=== PATIENT | female | born 1970 | race American Indian/Alaskan Native ===

== ENCOUNTER 2017-03-19 17:22 | Emergency (ER) | payer OTHER ==
[2017-03-19] MEDS ORDERED: ZESTRIL PO ONE (19:48)
[2017-03-19] MEDS ORDERED: VALIUM PO ONE (19:48)
[2017-03-19] MEDS ORDERED: PERCOCET 5/325 PO ONE (19:48)
[2017-03-19] MEDS ORDERED: CATAPRES PO ONE (19:48)
--- NOTE | 2017-03-19 21:07 | XRay Report ---
FINAL REPORT EXAM: XR FOOT BILAT 3+V HISTORY: fall with pain and swelling TECHNIQUE: Right foot three views and left foot three views PRIORS: None. FINDINGS: No fracture or dislocation identified. Joint spaces are within normal limits. No radiopaque foreign body seen. No soft tissue abnormality identified. IMPRESSION: Negative bilateral foot series
--- NOTE | 2017-03-19 21:11 | XRay Report ---
FINAL REPORT EXAM: XR ANKLE BILAT 3+V HISTORY: fall with pain and swelling TECHNIQUE: Bilateral ankles. Three views right ankle and three views of the left ankle PRIORS: None. FINDINGS: No fracture is identified. No dislocation seen. Ankle mortise is intact no evidence of joint space widening. No erosive or degenerative changes are identified. No evidence of joint effusion. There is lateral soft tissue swelling of the right ankle IMPRESSION: Lateral soft tissue swelling of the right ankle No fractures identified on bilateral ankle series
--- NOTE | 2017-03-19 21:13 | XRay Report ---
FINAL REPORT EXAM: XR TIB/FIB BILAT 2V HISTORY: Fall with pain TECHNIQUE: Bilateral lower legs tibia-fibula two views right knee two views left PRIORS: None. FINDINGS: No fracture is identified. The joint spaces are within normal limits. No focal bony lesion identified. No radiopaque foreign body seen. IMPRESSION: Negative no acute abnormality.
--- NOTE | 2017-03-19 21:16 | XRay Report ---
FINAL REPORT EXAM: XR KNEE BILAT 3V HISTORY: fall with pain and LROM TECHNIQUE: Bilateral knees three views right and three views left PRIORS: None. FINDINGS: No fracture is identified. No dislocation seen. No evidence of joint effusion. Patella demonstrates normal positioning. No acute bony abnormality identified. IMPRESSION: Negative knee series
[2017-03-19 23:01] VITALS: BP 155/93
--- NOTE | 2017-03-19 23:26 | Emergency Department Report ---
Entered by TERRY SPRAGUE, acting as scribe for STEFAN GREEN PA. 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 Patient was brought by EMS and is not ambulatory. Patient rates pain 9/10 and describes pain as throbbing and achy. Patient reports headache, but denies LOC, head injury, fever, chills, chest pain, abd pain, nausea, or vomiting. Patient has not taken anything for elevated HTN and needs a refill on HTN medication. She takes lisinopril 20 mg and clonidine 0.2 mg daily. NKDA. 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 denies: snap/pop sensation, numbness, tingling, ambulatory Treatments Prior to Arrival: other (on) - Related Data Home Medications Medication Instructions Recorded Confirmed Last Taken cloNIDine [Catapres] 0.2 mg PO QHS 04/21/13 03/15/16 01/06/14 Previous Rx's Medication Instructions Recorded Last Taken Type Lisinopril [Zestril TAB] 20 mg PO QDAY #30 04/21/13 01/06/14 Rx amLODIPine [Norvasc] 5 mg PO DAILY #30 tab 01/07/14 Unknown Rx Cyclobenzaprine [Flexeril] 10 mg PO TID PRN #15 tablet 03/19/17 Unknown Rx Ibuprofen [Motrin] 600 mg PO Q8H PRN #15 tablet 03/19/17 Unknown Rx Lisinopril [Zestril TAB] 20 mg PO QDAY #30 tablet 03/19/17 Unknown Rx cloNIDine [Catapres] 0.2 mg PO QHS #30 tablet 03/19/17 Unknown Rx Allergies Allergy/AdvReac Type Severity Reaction Status Date / Time No Known Allergies Allergy Verified 01/07/14 00:50 ED Review of Systems Comment: All other systems reviewed and negative Constitutional: denies: chills, fever, weakness ENT: denies: congestion Respiratory: denies: cough, orthopnea, shortness of breath, SOB with exertion, SOB at rest, stridor, wheezing Cardiovascular: denies: chest pain, palpitations, edema, syncope Gastrointestinal: denies: abdominal pain, nausea, diarrhea Musculoskeletal: joint swelling, arthralgia. denies: back pain, myalgia Skin: denies: rash, lesions Neurological: headache. denies: weakness, numbness, paresthesias, confusion, abnormal gait, vertigo ED Past Medical Hx - Past Medical History Previous Medical History?: Yes Hx Hypertension: Yes Additional medical history: nose bleeds - Surgical History Past Surgical History?: No - Family History Family history: hypertension - Social History Smoking Status: Never Smoker Substance Use Type: None - Medications Home Medications: Home Medications Medication Instructions Recorded Confirmed Last Taken Type Lisinopril [Zestril TAB] 20 mg PO QDAY #30 04/21/13 03/15/16 01/06/14 Rx cloNIDine [Catapres] 0.2 mg PO QHS 04/21/13 03/15/16 01/06/14 History amLODIPine [Norvasc] 5 mg PO DAILY #30 tab 01/07/14 03/15/16 Unknown Rx Cyclobenzaprine [Flexeril] 10 mg PO TID PRN #15 tablet 03/19/17 Unknown Rx Ibuprofen [Motrin] 600 mg PO Q8H PRN #15 tablet 03/19/17 Unknown Rx Lisinopril [Zestril TAB] 20 mg PO QDAY #30 tablet 03/19/17 Unknown Rx cloNIDine [Catapres] 0.2 mg PO QHS #30 tablet 03/19/17 Unknown Rx ED Physical Exam - General Limitations: No Limitations General appearance: alert, in no apparent distress - Head Head exam: Present: atraumatic, normocephalic, normal inspection - Expanded Head Exam Expanded Head exam: Absent: laceration, abrasion, contusion, hematoma, racoon eyes, graff's sign, general tenderness, tenderness of temporal artery, CSF rhinorrhea , CSF otorrhea - Eye Eye exam: Present: normal appearance, PERRL, EOMI. Absent: nystagmus, periorbital swelling, periorbital tenderness Pupils: Present: normal accommodation - ENT ENT exam: Present: normal exam, normal orophraynx, mucous membranes moist - Neck Neck exam: Present: normal inspection, full ROM. Absent: tenderness, meningismus, lymphadenopathy - Expanded Neck Exam Expanded Neck exam: Absent: tenderness, midline deformity, anterior neck swelling, tracheal deviation - Respiratory Respiratory exam: Present: normal lung sounds bilaterally. Absent: respiratory distress, wheezes, rales, rhonchi, stridor, chest wall tenderness, accessory muscle use, decreased breath sounds - Cardiovascular Cardiovascular Exam: Present: regular rate, normal rhythm, normal heart sounds. Absent: systolic murmur, diastolic murmur - GI/Abdominal GI/Abdominal exam: Present: soft, normal bowel sounds. Absent: distended, tenderness, guarding, rebound, rigid, diminished bowel sounds - Extremities Exam Extremities exam: Present: full ROM (with pain), tenderness, normal capillary refill, joint swelling. Absent: pedal edema, calf tenderness - Expanded Upper Extremity Exam Left General: Absent: abrasion, nail injury (#), foreign body, amputation, avulsion Shoulder Exam: Present: normal inspection, full ROM. Absent: tenderness, swelling, laceration, deformity, dislocation, erythema, tenderness over AC joint Upper Arm exam: Present: normal inspection, full ROM, other. Absent: abrasion, laceration, ecchymosis, deformity, crepidus, dislocation, erythema Elbow exam: Present: normal inspection, full ROM. Absent: tenderness, swelling , abrasion, laceration, ecchymosis, deformity, crepidus, dislocation, erythema, effusion, pain w/ pronation/supination, tenderness over radial head Forearm Wrist exam: Present: normal inspection, full ROM. Absent: tenderness, swelling, abrasion, laceration, ecchymosis, deformity, crepidus, dislocation, erythema, tenderness over anatomical snuff box, pain with axial thumb loading Hand Wrist exam: Present: normal inspection, full ROM. Absent: tenderness, swelling, abrasion, laceration, ecchymosis, deformity, crepidus, dislocation, erythema, amputation, nail avulsion, subungual hematoma Neuro motor exam: Present: wrist extension intact, thumb opposition intact, thumb IP flexion intact, thumb adduction intact, fingers 2-5 abduction intact Neurosensory exam: Present: 2-point discrimination, radial nerve intact, ulnar nerve intact, median nerve intact Vascular: Present: normal capillary refill, radial pulse, brachial pulse. Absent: vascular compromise, Pallo, pulse deficit radial art, pulse deficit ulnar art, pulse deficit brachial art Right General: Present: normal inspection. Absent: laceration, abrasion, nail injury (#), foreign body, amputation, avulsion Shoulder Exam: Present: normal inspection, full ROM (with pain). Absent: tenderness, swelling, abrasion, laceration, ecchymosis, deformity, crepidus, dislocation, erythema, tenderness over AC joint Elbow exam: Present: normal inspection, full ROM. Absent: tenderness, swelling , abrasion, laceration, ecchymosis, deformity, crepidus, dislocation, erythema, effusion, pain w/ pronation/supination, tenderness over radial head Forearm Wrist exam: Present: normal inspection, full ROM. Absent: tenderness, swelling, abrasion, laceration, ecchymosis, deformity, crepidus, dislocation, erythema, tenderness over anatomical snuff box, pain with axial thumb loading Hand Wrist exam: Present: normal inspection, full ROM. Absent: tenderness, swelling, abrasion, laceration, ecchymosis, deformity, crepidus, dislocation, amputation, nail avulsion, subungual hematoma Neuro motor exam: Present: wrist extension intact, thumb opposition intact, thumb IP flexion intact, thumb adduction intact, fingers 2-5 abduction intact Neurosensory exam: Present: 2-point discrimination, radial nerve intact, ulnar nerve intact, median nerve intact Vascular: Present: normal capillary refill, radial pulse, brachial pulse, ulnar pulse. Absent: vascular compromise, Pallo, pulse deficit radial art, pulse deficit ulnar art, pulse deficit brachial art - Expanded Lower Extremity Exam Right Hip exam: Present: normal inspection, full ROM, pelvic stability. Absent: tenderness, swelling, abrasion, laceration, ecchymosis, deformity, crepidus, dislocation, erythema, external rotation, internal rotation, shortening Upper Leg exam: Present: normal inspection, full ROM, tenderness. Absent: swelling, abrasion, laceration, ecchymosis, deformity, crepidus, dislocation, erythema Knee exam: Present: normal inspection, full ROM (with pain), tenderness (TTP to right knee all the way down to foot ), full knee extension. Absent: swelling, abrasion, laceration, ecchymosis, deformity, crepidus, dislocation, erythema, effusion, pain w/ pronation/supination, posterior draw sign, pain/laxity with valgus, pain/laxity with varus Lower Leg exam: Present: normal inspection, full ROM, tenderness. Absent: swelling, abrasion, laceration, ecchymosis, deformity, crepidus, dislocation, erythema, palpable cord, Jose Martin's sign Ankle exam: Present: swelling (Edema present in right ankle). Absent: full ROM (limited ROM) Foot/Toe exam: Present: tenderness, swelling. Absent: full ROM, abrasion, laceration, ecchymosis, deformity, crepidus, dislocation, erythema, amputation, puncture wound, foreign body, calcaneal tenderness, tenderness at base of 5th metatarsal, nail avulsion, subungual hematoma Neuro vascular tendon exam: Present: no vascular compromise (2+ pulses). Absent : pulse deficit, abnormal cap refill, motor deficit, sensory deficit, tendon deficit, extremity cold to touch, pallor, abnormal 2-point discrimination, decreased fine/light touch, foot drop, peroneal nerve deficit, significant pain with passive ROM of distal joint Gait: Positive: unable to bear weight Left Hip exam: Present: normal inspection, full ROM, pelvic stability. Absent: tenderness, swelling, abrasion, laceration, ecchymosis, deformity, crepidus, dislocation, erythema, external rotation, internal rotation, shortening Upper Leg exam: Present: normal inspection, full ROM. Absent: tenderness, swelling, abrasion, laceration, ecchymosis, deformity, crepidus, dislocation, erythema Knee exam: Present: normal inspection, full ROM (with pain), tenderness, full knee extension. Absent: swelling, abrasion, laceration, ecchymosis, deformity, crepidus, dislocation, erythema, effusion, pain w/ pronation/supination, posterior draw sign, pain/laxity with valgus, pain/laxity with varus Lower Leg exam: Present: normal inspection, full ROM, tenderness. Absent: swelling, abrasion, laceration, ecchymosis, deformity, crepidus, dislocation, erythema, palpable cord, Jose Martin's sign Ankle exam: Present: full ROM (with pain), tenderness, swelling. Absent: normal inspection, abrasion, laceration, ecchymosis, deformity, crepidus, dislocation, erythema, anterior draw sign Foot/Toe exam: Present: full ROM, tenderness, swelling. Absent: normal inspection, abrasion, laceration, ecchymosis, deformity, crepidus, dislocation, erythema, amputation, puncture wound, foreign body, calcaneal tenderness, tenderness at base of 5th metatarsal, nail avulsion, subungual hematoma Neuro vascular tendon exam: Present: no vascular compromise (2+). Absent: pulse deficit, abnormal cap refill, motor deficit, sensory deficit, tendon deficit, extremity cold to touch, pallor, abnormal 2-point discrimination, decreased fine/light touch, foot drop, peroneal nerve deficit, significant pain with passive ROM of distal joint Gait: Positive: unable to bear weight - Back Exam Back exam: Present: normal inspection, full ROM. Absent: tenderness, CVA tenderness (L), muscle spasm, paraspinal tenderness, vertebral tenderness, rash noted - Neurological Exam Neurological exam: Present: alert, oriented X3, abnormal gait (an abnormal gait due to pain and swelling to both ankle and feet and pain to both knees), motor sensory deficit (patient with decreased motor activity to lower extremity at both knees, and lower extremities.), reflexes normal - Psychiatric Psychiatric exam: Present: normal affect, normal mood. Absent: depressed - Skin Skin exam: Present: warm, dry, intact, normal color. Absent: rash ED Course Vital Signs 03/19/17 17:30 Temperature 98.3 F Pulse Rate 86 Respiratory 16 Rate Blood Pressure 212/104 O2 Sat by Pulse 98 Oximetry Vital Signs 03/19/17 03/19/17 17:30 23:00 Temperature 98.3 F Pulse Rate 86 68 Respiratory 16 18 Rate Blood Pressure 212/104 Blood Pressure 155/93 [Left] O2 Sat by Pulse 98 98 Oximetry - Reevaluation(s) Reevaluation #1: 03/19/17 23:10 Patient given Valium 10 mg by mouth, Percocet 5/325 2 tablets by mouth which relieved her pain. She also received clonidine 0.2 mg and lisinopril 20 mg by mouth for elevated blood pressure. These are her usual blood pressure and blood pressure is down. Patient no longer has a headache and said her pain is better. She still not able to weight-bear without pain. Patient with soft tissue swelling to right ankle and splint placed. Crutches training. - Orthopedic Splinting/Casting Injury #1 Side: right Lower Extremity Injury Location: ankle Lower Extremity Immobilizer: stirrup splint Other Orthopedic Equipment: crutches ED Lower Extremity MDM - Radiology Data Radiology results: report reviewed History of bilateral knees, tib-fib and feet reveal no fracture or dislocation and no abnormal findings. Of both ankles reveal no fracture or dislocation of ankles but patient had lateral soft tissue swelling of the right ankle. - Medical Decision Making E course: She had presented emergency room via EMS after falling at the [employer]. She says she tripped over a box and she complained of inability to walk due to pain in her lower extremities at both her knees, legs, ankles and feet. X-ray report reveals no acute fractures or dislocation to knees, ankles, legs and feet but soft tissue swelling laterally to right ankle. She can was placed in right ankle stirrup and given crutches. She demonstrated use without any difficulties. Should understand that she needs to follow up with orthopedic doctor in 1-2 days for follow-up visit. [place] reports and results with her. And also here presenting with elevated blood pressure and she has a history of 5 blood pressure but she said she does not have any blood pressure medication. She says she takes lisinopril and clonidine which was verified. Was given lisinopril 20 mg by mouth and clonidine 0.2 mg by mouth which brought her pressure down. He is also given Percocet 5/325 2 tablets emergency room along with Valium 10 mg by mouth for arthralgia and she voiced relief of her pain. Patient voiced understanding of discharge instruction and treatment plan and to follow-up with her primary care physician along with orthopedic doctor as discussed. I discussed with her if she does not have a primary care physician she will need to follow up at [facility] to manage her chronic hypertension. Patient is able to stand and ambulate but she still remains a pain to her lower extremity with ambulation. Diagnostic/labs: X-ray report of bilateral knees negative for fracture dislocation or effusion. X-ray of bilateral tib-fib negative for fracture or dislocation, x-ray of bilateral foot reveals no fracture or dislocation and x- ray of bilat right ankle but soft tissue swelling right lateral ankle Assessment/plan 1. Arthralgia multiple sites bilaterally 2. Elevated blood pressure with diagnosis of hypertension-ran out of her medication 3. The dental fall from ground level 4. Right ankle sprain 5. Musculoskeletal pain Patient given prescription for Flexeril and Motrin and to follow-up with orthopedic doctor and if she does not have a primary care physician to follow up at [facility] in 2-3 days for management of chronic hypertension. She was given refill on clonidine 0.2 mg daily at bedtime and lisinopril 20 mg daily. ED Disposition Clinical Impression: Arthralgia of multiple sites, bilateral, Musculoskeletal pain, Elevated blood pressure reading in office with diagnosis of hypertension Accidental fall Qualifiers: Encounter type: initial encounter Qualified Code(s): W19.XXXA - Unspecified fall, initial encounter Right ankle sprain Qualifiers: Encounter type: initial encounter Involved ligament of ankle: other ligament Qualified Code(s): S93.491A - Sprain of other ligament of right ankle, initial encounter Disposition: TO HOME OR SELFCARE Is pt being admited?: No Does the pt Need Aspirin: No Condition: Stable Instructions: Hypertension (ED), Musculoskeletal Pain (ED), Arthralgia (ED), Knee Pain (ED), Knee Exercises (GEN), Ankle Stirrup Splint (ED), Ankle Sprain ( ED) Additional Instructions: follow up with [facility] for management of elevated blood pressure and chronic hypertension Take medication as prescribed Keep a log a few blood pressure and take to primary care visit with you Follow-up with orthopedic doctor as instructed Do not drive or operate heavy machinery while taking Flexeril as this medication causes drowsiness Prescriptions: cloNIDine [Catapres] 0.2 mg PO QHS #30 tablet Cyclobenzaprine [Flexeril] 10 mg PO TID PRN #15 tablet PRN Reason: Muscle Spasm Ibuprofen [Motrin] 600 mg PO Q8H PRN #15 tablet PRN Reason: Pain Lisinopril [Zestril TAB] 20 mg PO QDAY #30 tablet Referrals: PRIMARY CAREMD [Primary Care Provider] - 2-3 Days BECKIE LONGO MD [Staff Physician] - 2-3 Days [facility] [Outside] - 2-3 Days Forms: Work/School Release Form(ED) This documentation as recorded by the DARCIE mckeon PEARL,accurately reflects the service I personally performed and the decisions made by ,STEFAN GREEN PA.
== END 2017-03-19 23:54 | disposition home or self-care (01) ==
LOC: ED 17:22
DX: S93.491A Sprain of other ligament of right ankle, initial encounter (principal); M25.561 Pain in right knee; M25.562 Pain in left knee; I10 Essential (primary) hypertension; W01.0XXA Fall on same level from slipping, tripping and stumbling without subsequent striking against object, initial encounter; Y93.89 Activity, other specified; Y92.89 Other specified places as the place of occurrence of the external cause; Y99.8 Other external cause status

== ENCOUNTER 2019-02-15 02:53 | Emergency (ER) | payer SELFPAY ==
[2019-02-15 03:26] LABS: Basophils # (Auto) 0.1 K/mm3 (0.0-0.1); Basophils % (Auto) 1.2 % (0.0-1.8); Eosinophils # (Auto) 0.3 K/mm3 (0.0-0.4); Eosinophils % (Auto) 3.7 % (0.0-4.3); Hemoglobin 12.6 gm/dl (10.1-14.3); Lymphocytes # (Auto) 2.3 K/mm3 (1.2-5.4); Lymphocytes % (Auto) 32.7 % (13.4-35.0); Mean Corpuscular HGB Conc 34 % (30-34); Mean Corpuscular Volume 91 fl (79-97); Monocytes # (Auto) 0.9 K/mm3 (0.0-0.8); Monocytes % (Auto) 13.2 % (0.0-7.3); Platelet Count 225 K/mm3 (140-440); Red Blood Count 4.08 M/mm3 (3.65-5.03); Red Cell Distribution Width 12.9 % (13.2-15.2)
[2019-02-15] MEDS ORDERED: ZESTRIL PO ONE (03:42)
[2019-02-15] MEDS ORDERED: ZIAC 10-6.25 PO ONE (03:42)
[2019-02-15 03:43] LABS: HCG Qualitative,Urine Negative (Negative)
[2019-02-15 03:46] LABS: Alanine Aminotransferase 15 units/L (7-56); Albumin 4.4 g/dL (3.9-5); BUN/Creatinine Ratio 13; Blood Urea Nitrogen 13 mg/dL (7-17); Calcium 9.3 mg/dL (8.4-10.2); Hemolysis Index 6
--- NOTE | 2019-02-15 03:50 | Emergency Department Report ---
ED General Adult HPI - General Chief complaint: Nosebleed Stated complaint: NOSE BLEED BLOOD PRESSURE MEDS Time Seen by Provider: 02/15/19 03:49 Source: patient, RN notes reviewed, old records reviewed Mode of arrival: Ambulatory Limitations: No Limitations - History of Present Illness Initial comments: This is a pleasant 48-year-old female. I have evaluated this patient in the past. She does not think she is . She presents to the ER with 2 complaints. Her first complaint is bilateral nasal bleeding. It is now resolved. It decreased on its own Patient also complains of pain was minimal lower extremity swelling. She also complains of hypertension and states that she ran out of her blood pressure medications. She has no other injuries. She has no other complaints. She denies nasal trauma, cocaine, picking her nose, chest pain, abdominal pain, new, different shortness of breath. She makes no complaints or mention of DVT or pulmonary embolism risk factors. -: Sudden Location: face, left, right, lower extremity Radiation: non-radiation Consistency: now resolved Improves with: other Worsens with: other - Related Data Home Medications Medication Instructions Recorded Confirmed Last Taken cloNIDine [Catapres] 0.2 mg PO QHS 04/21/13 03/15/16 01/06/14 Previous Rx's Medication Instructions Recorded Last Taken Type amLODIPine [Norvasc] 5 mg PO DAILY #30 tab 01/07/14 Unknown Rx Cyclobenzaprine [Flexeril] 10 mg PO TID PRN #15 tablet 03/19/17 Unknown Rx Ibuprofen [Motrin] 600 mg PO Q8H PRN #15 tablet 03/19/17 Unknown Rx Lisinopril [Zestril TAB] 20 mg PO QDAY #30 tablet 03/19/17 Unknown Rx cloNIDine [Catapres] 0.2 mg PO QHS #30 tablet 03/19/17 Unknown Rx Bisoprolol/Hctz [Ziac 10-6.25] 1 each PO DAILY #30 tab 02/15/19 Unknown Rx Lisinopril [Zestril TAB] 20 mg PO QDAY #30 tablet 02/15/19 Unknown Rx Allergies Allergy/AdvReac Type Severity Reaction Status Date / Time No Known Allergies Allergy Verified 01/07/14 00:50 ED Review of Systems ROS: Stated complaint: NOSE BLEED BLOOD PRESSURE MEDS Other details as noted in HPI Constitutional: denies: fever Eyes: denies: eye discharge ENT: epistaxis. denies: congestion Respiratory: denies: cough Cardiovascular: edema. denies: chest pain Gastrointestinal: denies: abdominal pain, nausea, vomiting Genitourinary: denies: dysuria Musculoskeletal: denies: myalgia Neurological: denies: as per HPI Psychiatric: anxiety Hematological/Lymphatic: denies: easy bleeding ED Past Medical Hx - Past Medical History Previous Medical History?: Yes Hx Hypertension: Yes Additional medical history: nose bleeds - Surgical History Past Surgical History?: No - Social History Smoking Status: Never Smoker Substance Use Type: None - Medications Home Medications: Home Medications Medication Instructions Recorded Confirmed Last Taken Type cloNIDine [Catapres] 0.2 mg PO QHS 04/21/13 03/15/16 01/06/14 History amLODIPine [Norvasc] 5 mg PO DAILY #30 tab 01/07/14 03/15/16 Unknown Rx Cyclobenzaprine [Flexeril] 10 mg PO TID PRN #15 tablet 03/19/17 Unknown Rx Ibuprofen [Motrin] 600 mg PO Q8H PRN #15 tablet 03/19/17 Unknown Rx Lisinopril [Zestril TAB] 20 mg PO QDAY #30 tablet 03/19/17 Unknown Rx cloNIDine [Catapres] 0.2 mg PO QHS #30 tablet 03/19/17 Unknown Rx Bisoprolol/Hctz [Ziac 10-6.25] 1 each PO DAILY #30 tab 02/15/19 Unknown Rx Lisinopril [Zestril TAB] 20 mg PO QDAY #30 tablet 02/15/19 Unknown Rx ED Physical Exam - General Limitations: No Limitations General appearance: alert, in no apparent distress - Head Head exam: Present: atraumatic, normocephalic - Eye Eye exam: Present: normal appearance, EOMI. Absent: nystagmus - ENT ENT exam: Present: normal exam, normal orophraynx, mucous membranes moist, normal external ear exam, other (no active bleeding noted in the nostrils. Dried blood is noted.) - Neck Neck exam: Present: normal inspection, full ROM. Absent: tenderness, meningismus - Respiratory Respiratory exam: Present: normal lung sounds bilaterally. Absent: respiratory distress - Cardiovascular Cardiovascular Exam: Present: normal rhythm, tachycardia, normal heart sounds. Absent: systolic murmur, diastolic murmur, rubs, gallop - GI/Abdominal GI/Abdominal exam: Present: soft. Absent: distended, tenderness, guarding, rebound, rigid, pulsatile mass - Extremities Exam Extremities exam: Present: normal inspection, full ROM, pedal edema (1+ edema noted on the feet. There is no palpable cord. There is a negative Homans sign.), other (2+ pulses noted in the bilateral upper, lower extremities. Compartments soft. No long bony tenderness. The pelvis is stable.). Absent: calf tenderness - Back Exam Back exam: Present: normal inspection, full ROM. Absent: tenderness, CVA tenderness (R), CVA tenderness (L), paraspinal tenderness, vertebral tenderness - Neurological Exam Neurological exam: Present: alert, oriented X3, normal gait, other (Extraocular movements intact. Tongue midline. No facial droop. Facial sensation intact to light touch in the V1, V2, V3 distribution bilaterally. 5 and 5 strength in 4 extremities.. Sensation is intact to light touch in 4 extremities.). Absent: motor sensory deficit - Psychiatric Psychiatric exam: Present: anxious - Skin Skin exam: Present: warm, dry, intact, normal color. Absent: rash ED Course Vital Signs 02/15/19 02/15/19 02/15/19 02:55 03:20 03:45 Temperature 98.3 F Pulse Rate 112 H 101 H 100 H Respiratory 18 18 16 Rate Blood Pressure 270/140 Blood Pressure 252/126 264/151 [Right] O2 Sat by Pulse 98 98 97 Oximetry 02/15/19 02/15/19 02/15/19 04:05 04:27 04:41 Temperature Pulse Rate 88 82 85 Respiratory 15 16 16 Rate Blood Pressure Blood Pressure 222/112 222/111 214/117 [Right] O2 Sat by Pulse 97 98 Oximetry 02/15/19 05:18 Temperature Pulse Rate 76 Respiratory 15 Rate Blood Pressure Blood Pressure 195/103 [Right] O2 Sat by Pulse 97 Oximetry ED Medical Decision Making - Lab Data Result diagrams: 02/15/19 03:16 02/15/19 03:16 Vital Signs 02/15/19 02/15/19 02/15/19 02:55 03:20 03:45 Temperature 98.3 F Pulse Rate 112 H 101 H 100 H Respiratory 18 18 16 Rate Blood Pressure 270/140 Blood Pressure 252/126 264/151 [Right] O2 Sat by Pulse 98 98 97 Oximetry 02/15/19 02/15/19 02/15/19 04:05 04:27 04:41 Temperature Pulse Rate 88 82 85 Respiratory 15 16 16 Rate Blood Pressure Blood Pressure 222/112 222/111 214/117 [Right] O2 Sat by Pulse 97 98 Oximetry Lab Results 02/15/19 02/15/19 02/15/19 Range/Units 03:16 03:16 Unknown WBC 7.2 (4.5-11.0) K/mm3 RBC 4.08 (3.65-5.03) M/mm3 Hgb 12.6 (10.1-14.3) gm/dl Hct 37.0 (30.3-42.9) % MCV 91 (79-97) fl MCH 31 (28-32) pg MCHC 34 (30-34) % RDW 12.9 L (13.2-15.2) % Plt Count 225 (140-440) K/mm3 Lymph % (Auto) 32.7 (13.4-35.0) % [place] % (Auto) 13.2 H (0.0-7.3) % Eos % (Auto) 3.7 (0.0-4.3) % Baso % (Auto) 1.2 (0.0-1.8) % Lymph # 2.3 (1.2-5.4) K/mm3 [place] # 0.9 H (0.0-0.8) K/mm3 Eos # 0.3 (0.0-0.4) K/mm3 Baso # 0.1 (0.0-0.1) K/mm3 Seg Neutrophils % 49.2 (40.0-70.0) % Seg Neutrophils # 3.5 (1.8-7.7) K/mm3 Sodium 140 (137-145) mmol/L Potassium 3.7 (3.6-5.0) mmol/L Chloride 100.4 (98-107) mmol/L Carbon Dioxide 28 (22-30) mmol/L Anion Gap 15 mmol/L BUN 13 (7-17) mg/dL Creatinine 1.0 (0.7-1.2) mg/dL Estimated GFR > 60 ml/min BUN/Creatinine Ratio 13 % Glucose 102 H (65-100) mg/dL Calcium 9.3 (8.4-10.2) mg/dL Total Bilirubin 0.40 (0.1-1.2) mg/dL AST 23 (5-40) units/L ALT 15 (7-56) units/L Alkaline Phosphatase 66 (35-129) units/L Total Protein 8.6 H (6.3-8.2) g/dL Albumin 4.4 (3.9-5) g/dL Albumin/Globulin Ratio 1.0 % Urine HCG, Qual Negative (Negative) Vital Signs 02/15/19 02/15/19 02/15/19 02:55 03:20 03:45 Temperature 98.3 F Pulse Rate 112 H 101 H 100 H Respiratory 18 18 16 Rate Blood Pressure 270/140 Blood Pressure 252/126 264/151 [Right] O2 Sat by Pulse 98 98 97 Oximetry 02/15/19 02/15/19 02/15/19 04:05 04:27 04:41 Temperature Pulse Rate 88 82 85 Respiratory 15 16 16 Rate Blood Pressure Blood Pressure 222/112 222/111 214/117 [Right] O2 Sat by Pulse 97 98 Oximetry 02/15/19 05:18 Temperature Pulse Rate 76 Respiratory 15 Rate Blood Pressure Blood Pressure 195/103 [Right] O2 Sat by Pulse 97 Oximetry - Medical Decision Making Differential diagnosis, including but not limited to: Hypertension, anxiety, me dication refill, nasal bleeding Dependent edema Assessment and plan: 48-year-old female with complaint of recurrent nasal bleeding. It is now resolved. Has chronic hypertension. Retention improved with continuation of her outpatient medications. Does not require emergent D escalation of chronic hypertension. Please reference the [employer] clinical policy on chronic hypertension which is not acutely decompensated. Patient given a tongue blade external device to apply to the external nostrils if bleeding reoccurs. Her medications are refilled. Has minimal lower extremity edema, without evidence of DVT, or overt CHF. She does not appear to have an emergent medical condition at this time, and she may be discharged. Critical care attestation.: If time is entered above; I have spent that time in minutes in the direct care of this critically ill patient, excluding procedure time. ED Disposition Clinical Impression: Hypertension, Nasal bleeding, Medication refill Disposition: - TO HOME OR SELFCARE Is pt being admited?: No Does the pt Need Aspirin: No Condition: Stable Instructions: Epistaxis (ED) Additional Instructions: Take the blood pressure medications as directed. Purchase Flonase [id number]. If patient starts to have bleeding again, she should apply one to 2 sprays of Flonase per nostril, and apply gentle direct pressure with her fingertips and the tongue depressor device as directed. If these do not stop nasal bleeding, the patient should return to the ER right away. The patient should follow-up with her primary care doctor for her hypertension within 4-6 weeks. Long-term complications of hypertension and elevated blood pressure includes stroke, heart attack, disability, paralysis, loss of quality of life. Return to the emergency room right away with new, worsening or different symptoms, or symptoms not present on the initial emergency room evaluation. Prescriptions: Lisinopril [Zestril TAB] 20 mg PO QDAY #30 tablet Bisoprolol/Hctz [Ziac 10-6.25] 1 each PO DAILY #30 tab Referrals: HAYDEN CLARKE MD [Primary Care Provider] - as needed
[2019-02-15 05:19] VITALS: BP 195/103
== END 2019-02-15 05:30 | disposition home or self-care (01) ==
LOC: ED 02:53
DX: I10 Essential (primary) hypertension (principal); R04.0 Epistaxis; Z76.0 Encounter for issue of repeat prescription; Z79.899 Other long term (current) drug therapy
CPT/HCPCS: 36415; 80053; 81025; 85025

== ENCOUNTER 2019-05-16 02:47 | Emergency (ER) | payer SELFPAY ==
[2019-05-16 02:56] VITALS: BP 241/110
--- NOTE | 2019-05-16 03:26 | XRay Report ---
Right hand 4 views INDICATION: Right hand pain following injury. Impression: No acute fracture or subluxation identified. Signer Name: Yehuda Rhodes MD Signed: 05/16/2019 3:22 AM Workstation Name: [id number]
[2019-05-16] MEDS ORDERED: DELTASONE PO ONE (03:32)
[2019-05-16] MEDS ORDERED: IBUPROFEN PO ONE (03:32)
[2019-05-16] MEDS ORDERED: TYLENOL #3 PO ONE (03:32)
--- NOTE | 2019-05-16 03:33 | Emergency Department Report ---
ED Upper Extremity Inj HPI - General Chief Complaint: Extremity Injury, Upper Stated Complaint: RIGHT HAND SWOLLEN Time Seen by Provider: 05/16/19 03:27 Source: patient Mode of arrival: Ambulatory Limitations: No Limitations - History of Present Illness Initial Comments: pt is a 48 y/o aaf who presents for right hand pain swelling aching x 2 days, pt denies fall, injury ,or trauma. " I did not hit it or fall" pain is described as 5/10 aching with joint pain , rom restricted by pain There is no numbness , no tingling, no paralysis , pt denies Sat night palsy episode. There is mild swelling , no deformity , no abrasion, laceration or bleeding. Complaint: Injury to:: right, hand Onset/Timin -: days(s) Other Extremity Injury: Hand: Right Other Injuries: none Handedness: right Place: work Severity scale (0 -10): 5 Improves With: rest Worsens With: movement of extremity Context: other (unkown ) Associated Symptoms: denies other symptoms Treatments Prior to Arrival: cold therapy - Related Data Home Medications Medication Instructions Recorded Confirmed Last Taken cloNIDine [Catapres] 0.2 mg PO QHS 04/21/13 03/15/16 01/06/14 Previous Rx's Medication Instructions Recorded Last Taken Type amLODIPine 5 mg PO DAILY #30 tab 01/07/14 Unknown Rx Cyclobenzaprine [Flexeril] 10 mg PO TID PRN #15 tablet 03/19/17 Unknown Rx Ibuprofen [Motrin] 600 mg PO Q8H PRN #15 tablet 03/19/17 Unknown Rx Lisinopril [Zestril TAB] 20 mg PO QDAY #30 tablet 03/19/17 Unknown Rx cloNIDine [Catapres] 0.2 mg PO QHS #30 tablet 03/19/17 Unknown Rx Bisoprolol/Hctz [Ziac 10-6.25] 1 each PO DAILY #30 tab 02/15/19 Unknown Rx Lisinopril [Zestril TAB] 20 mg PO QDAY #30 tablet 02/15/19 Unknown Rx Ibuprofen [Motrin 800 MG tab] 800 mg PO Q8HR PRN #30 tablet 05/16/19 Unknown Rx predniSONE [Deltasone] 40 mg PO QDAY 5 Days #10 tab 05/16/19 Unknown Rx Allergies Allergy/AdvReac Type Severity Reaction Status Date / Time No Known Allergies Allergy Verified 01/07/14 00:50 ED Review of Systems ROS: Stated complaint: RIGHT HAND SWOLLEN Other details as noted in HPI Constitutional: denies: chills, fever Eyes: denies: eye pain, eye discharge, vision change ENT: denies: ear pain, throat pain Respiratory: denies: cough, shortness of breath, wheezing Cardiovascular: denies: chest pain, palpitations Endocrine: no symptoms reported Gastrointestinal: denies: abdominal pain, nausea, diarrhea Genitourinary: denies: urgency, dysuria, discharge Musculoskeletal: joint swelling, arthralgia, myalgia. denies: back pain Skin: change in hair/nails. denies: lesions Neurological: denies: headache, weakness, numbness, paresthesias, confusion, vertigo Psychiatric: denies: anxiety, depression Hematological/Lymphatic: denies: easy bleeding, easy bruising ED Past Medical Hx - Past Medical History Previous Medical History?: Yes Hx Hypertension: Yes Additional medical history: nose bleeds - Social History Smoking Status: Never Smoker Substance Use Type: None - Medications Home Medications: Home Medications Medication Instructions Recorded Confirmed Last Taken Type cloNIDine [Catapres] 0.2 mg PO QHS 04/21/13 03/15/16 01/06/14 History amLODIPine 5 mg PO DAILY #30 tab 01/07/14 03/15/16 Unknown Rx Cyclobenzaprine [Flexeril] 10 mg PO TID PRN #15 tablet 03/19/17 Unknown Rx Ibuprofen [Motrin] 600 mg PO Q8H PRN #15 tablet 03/19/17 Unknown Rx Lisinopril [Zestril TAB] 20 mg PO QDAY #30 tablet 03/19/17 Unknown Rx cloNIDine [Catapres] 0.2 mg PO QHS #30 tablet 03/19/17 Unknown Rx Bisoprolol/Hctz [Ziac 10-6.25] 1 each PO DAILY #30 tab 02/15/19 Unknown Rx Lisinopril [Zestril TAB] 20 mg PO QDAY #30 tablet 02/15/19 Unknown Rx Ibuprofen [Motrin 800 MG tab] 800 mg PO Q8HR PRN #30 tablet 05/16/19 Unknown Rx predniSONE [Deltasone] 40 mg PO QDAY 5 Days #10 tab 05/16/19 Unknown Rx ED Physical Exam - General Limitations: No Limitations General appearance: alert, in no apparent distress - Head Head exam: Present: atraumatic, normocephalic - Eye Eye exam: Present: normal appearance, PERRL, EOMI Pupils: Present: normal accommodation - ENT ENT exam: Present: mucous membranes moist, normal external ear exam - Neck Neck exam: Present: normal inspection, tenderness, full ROM, lymphadenopathy. Absent: meningismus - Respiratory Respiratory exam: Present: normal lung sounds bilaterally. Absent: respiratory distress, wheezes, stridor - Cardiovascular Cardiovascular Exam: Present: regular rate, normal rhythm, normal heart sounds. Absent: systolic murmur, diastolic murmur, rubs, gallop - GI/Abdominal GI/Abdominal exam: Present: soft, normal bowel sounds. Absent: distended, tenderness - Rectal Rectal exam: Present: deferred, normal inspection - Extremities Exam Extremities exam: Present: full ROM, tenderness (call him over heare ), normal capillary refill. Absent: joint swelling, calf tenderness - Back Exam Back exam: Present: normal inspection, full ROM, paraspinal tenderness. Absent: CVA tenderness (R), CVA tenderness (L), muscle spasm - Neurological Exam Neurological exam: Present: alert, oriented X3, CN II-XII intact, normal gait, reflexes normal. Absent: motor sensory deficit - Expanded Neurological Exam Expanded Motor strength exam: RUE: 5, LUE: 5, RLE: 5, LLE: 5 Best Eye Response ([place]): (4) open spontaneously Best Motor Response ([place]): (6) obeys commands Best Verbal Response ([place]): (5) oriented Bhavya Total: 15 - Psychiatric Psychiatric exam: Present: normal affect, normal mood - Skin Skin exam: Present: warm, dry, intact, normal color. Absent: rash ED Course Vital Signs 05/16/19 02:53 Temperature 97.4 F L Pulse Rate 77 Respiratory 18 Rate Blood Pressure 241/110 O2 Sat by Pulse 95 Oximetry ED Medical Decision Making - Radiology Data Radiology results: report reviewed, image reviewed Ordering Physician: JUVE NICOLE DO Date of Service: 05/16/19 Procedure(s): XR hand 3+V RT Accession Number(s): [id number] cc: JUVE NICOLE DO Fluoro Time In Minutes: Right hand 4 views INDICATION: Right hand pain following injury. Impression: No acute fracture or subluxation identified. 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 plan to home with rx for prednisone, ibuprofen, follow up with pcp in 2-3 days Dx Arthralgia versus gout. pt verbalized agreement and understanding of discharge plan. Critical care attestation.: If time is entered above; I have spent that time in minutes in the direct care of this critically ill patient, excluding procedure time. ED Disposition Clinical Impression: Hand pain Qualifiers: Laterality: right Qualified Code(s): M79.641 - Pain in right hand Arthralgia Qualifiers: Joint pain location: hand Laterality: right Qualified Code(s): M25.541 - Pain in joints of right hand Disposition: DC-01 TO HOME OR SELFCARE Is pt being admited?: No Does the pt Need Aspirin: No Condition: Stable Instructions: Arthralgia (ED) Prescriptions: predniSONE [Deltasone] 40 mg PO QDAY 5 Days #10 tab Ibuprofen [Motrin 800 MG tab] 800 mg PO Q8HR PRN #30 tablet PRN Reason: pain Referrals: TREASURE JEAN MD [Staff Physician] - 3-5 Days Forms: Work/School Release Form(ED) Time of Disposition: 04:21
== END 2019-05-16 04:36 | disposition home or self-care (01) ==
LOC: ED 02:47
DX: M79.641 Pain in right hand (principal); I10 Essential (primary) hypertension; Z79.899 Other long term (current) drug therapy
CPT/HCPCS: 73130; 99283; J7512

== ENCOUNTER 2021-11-22 00:40 | Emergency (ER) | payer SELFPAY ==
[2021-11-22] MEDS ORDERED: cloNIDine 0.2 MG TAB PO ONE (01:17)
[2021-11-22] MEDS ORDERED: LORazepam 1 MG TAB PO ONE (01:41)
--- NOTE | 2021-11-22 01:48 | Emergency Department Report ---
HPI - General Chief Complaint: Extremity Injury, Lower Time Seen by Provider: 11/22/21 01:11 - HPI HPI: Room 17 The patient is a 50-year-old female present with a chief complaint of bleeding from right lower extremity. The patient states she was in the shower shaving with a razor when she accidentally nicked her self began bleeding. Patient states she believes she lost a lot of blood. EMS was called and applied a bandage and transported the patient to the ED. Patient denies being on any anticoagulation ED Past Medical Hx - Past Medical History Previous Medical History?: Yes Hx Hypertension: Yes Additional medical history: nose bleeds - Surgical History Past Surgical History?: No - Family History Family history: no significant - Social History Smoking Status: Never Smoker Substance Use Type: Alcohol (Occasional), Marijuana - Medications Home Medications: Home Medications Medication Instructions Recorded Confirmed Last Taken Type cloNIDine [Catapres] 0.2 mg PO QHS 04/21/13 03/15/16 01/06/14 History amLODIPine 5 mg PO DAILY #30 tab 01/07/14 03/15/16 Unknown Rx Cyclobenzaprine [Flexeril] 10 mg PO TID PRN #15 tablet 03/19/17 Unknown Rx Ibuprofen [Motrin] 600 mg PO Q8H PRN #15 tablet 03/19/17 Unknown Rx cloNIDine [Catapres] 0.2 mg PO QHS #30 tablet 03/19/17 Unknown Rx lisinopriL [Zestril TAB] 20 mg PO QDAY #30 tablet 03/19/17 Unknown Rx Bisoprolol/Hctz [Ziac 10-6.25] 1 each PO DAILY #30 tab 02/15/19 Unknown Rx lisinopriL [Zestril TAB] 20 mg PO QDAY #30 tablet 02/15/19 Unknown Rx Ibuprofen [Motrin 800 MG tab] 800 mg PO Q8HR PRN #30 tablet 05/16/19 Unknown Rx predniSONE [Deltasone] 40 mg PO QDAY 5 Days #10 tab 05/16/19 Unknown Rx ED Review of Systems ROS: Stated complaint: LACERATION TO LOWER RT LEG Other details as noted in HPI Constitutional: no symptoms reported Eyes: denies: eye pain ENT: denies: throat pain Respiratory: no symptoms reported Cardiovascular: denies: chest pain Endocrine: no symptoms reported Gastrointestinal: denies: abdominal pain Genitourinary: denies: dysuria Musculoskeletal: denies: back pain Neurological: denies: headache Psychiatric: anxiety Hematological/Lymphatic: other (Bleeding from leg) Physical Exam - Physical Exam Vital Signs: Vital Signs 11/22/21 11/22/21 11/22/21 00:53 01:10 01:15 Temperature 98 F Pulse Rate 111 H 100 H 107 H Respiratory 20 20 15 Rate Blood Pressure 230/120 231/123 Blood Pressure [Left] O2 Sat by Pulse 99 95 95 Oximetry 11/22/21 11/22/21 01:22 01:31 Temperature 98.1 F Pulse Rate 107 H Respiratory 15 Rate Blood Pressure 231/123 Blood Pressure 231/123 [Left] O2 Sat by Pulse 95 Oximetry Physical Exam: GENERAL: The patient is well-developed well-nourished female lying on stretcher not appearing to be in acute distress. [] HEENT: Normocephalic. Atraumatic. Extraocular motions are intact. Patient has moist mucous membranes. NECK: Supple. Trachea midline CHEST/LUNGS: There is no respiratory distress noted. HEART/CARDIOVASCULAR: Regular. SKIN: Dressing from right lower extremity was removed and there was venous oozing from a pinhole size lesion to the right lower extremity. Pressure was applied site was clean and Dermabond applied to achieve hemostasis NEURO: The patient is awake, alert, and oriented. The patient is cooperative. The patient has no focal neurologic deficits. The patient has normal speech. GCS 15 MUSCULOSKELETAL: There is no evidence of acute injury. ED Course Vital Signs 11/22/21 11/22/21 11/22/21 00:53 01:10 01:15 Temperature 98 F Pulse Rate 111 H 100 H 107 H Respiratory 20 20 15 Rate Blood Pressure 230/120 231/123 Blood Pressure [Left] O2 Sat by Pulse 99 95 95 Oximetry 11/22/21 11/22/21 01:22 01:31 Temperature 98.1 F Pulse Rate 107 H Respiratory 15 Rate Blood Pressure 231/123 Blood Pressure 231/123 [Left] O2 Sat by Pulse 95 Oximetry - Reevaluation(s) Reevaluation #1: 11/22/21 03:07 Patient remains hemostatic - Laceration /Wound Repair Right Distal Leg Wound Location: lower extremity Betadine Prep?: No Wound Repaired With: Dermabond ED Medical Decision Making - Lab Data Result diagrams: 11/22/21 01:52 Laboratory Tests 11/22/21 11/22/21 01:52 01:52 WBC 7.6 RBC 3.84 Hgb 11.2 Hct 34.1 MCV 89 MCH 29 MCHC 33 RDW 12.7 L Plt Count 251 Lymph % (Auto) 17.8 [place] % (Auto) 6.8 Eos % (Auto) 2.3 Baso % (Auto) 0.7 Lymph # (Auto) 1.4 [place] # (Auto) 0.5 Eos # (Auto) 0.2 Baso # (Auto) 0.1 Seg Neutrophils % 72.4 H Seg Neutrophils # 5.5 PT 14.2 INR 0.99 APTT 39.2 H - Differential Diagnosis Right lower extremity laceration Critical care attestation.: If time is entered above; I have spent that time in minutes in the direct care of this critically ill patient, excluding procedure time. ED Disposition Clinical Impression: Laceration of right lower extremity Disposition: 01 HOME / SELF CARE / HOMELESS Is pt being admited?: No Does the pt Need Aspirin: No Condition: Stable Instructions: Sutures, Martín, or Adhesive Wound Closure, [id number] Additional Instructions: Return to the emergency department should you develop worsening symptoms, inability to tolerate food or liquids, high fever or any other concerns Referrals: [facility] [Provider Group] - 3-5 Days Time of Disposition: 03:08
[2021-11-22 02:06] LABS: Basophils # (Auto) 0.1 K/mm3 (0.0-0.1); Basophils % (Auto) 0.7 % (0.0-1.8); Eosinophils # (Auto) 0.2 K/mm3 (0.0-0.4); Eosinophils % (Auto) 2.3 % (0.0-4.3); Hematocrit 34.1 % (30.3-42.9); Hemoglobin 11.2 gm/dl (10.1-14.3); Lymphocytes # (Auto) 1.4 K/mm3 (1.2-5.4); Lymphocytes % (Auto) 17.8 % (13.4-35.0); Mean Corpuscular HGB Conc 33 % (30-34); Mean Corpuscular Volume 89 fl (79-97); Monocytes # (Auto) 0.5 K/mm3 (0.0-0.8); Monocytes % (Auto) 6.8 % (0.0-7.3); Platelet Count 251 K/mm3 (140-440); Red Blood Count 3.84 M/mm3 (3.65-5.03); Red Cell Distribution Width 12.7 % (13.2-15.2)
[2021-11-22 02:19] LABS: INR 0.99 (0.87-1.13)
[2021-11-22 02:20] LABS: Partial Thromboplastin Time 39.2 Sec. (24.2-36.6)
[2021-11-22 04:27] VITALS: BP 164/96
== END 2021-11-22 04:26 | disposition home or self-care (01) ==
LOC: ED 00:40
DX: S81.811A Laceration without foreign body, right lower leg, initial encounter (principal); X58.XXXA Exposure to other specified factors, initial encounter; Y93.89 Activity, other specified; Y92.89 Other specified places as the place of occurrence of the external cause; Y99.8 Other external cause status
CPT/HCPCS: 36415; 85025; 85610; 85730; 99284